=== PATIENT | female | born 1980 | race Caucasian/White ===

== ENCOUNTER 2017-06-16 22:12 | Emergency (ER) | payer MEDICAID ==
[~2017-06-16] VITALS: Ht 175.3 cm; Wt 74.1 kg
[2017-06-17 00:55] LABS: Basophils # (auto) 0 uL; Basophils % (auto) 0.4 % (0.0-2.0); CONDITION Y; Eosinophils # (auto) 0.6 uL; Eosinophils % (auto) 5.3 % (0.0-7.0); Hematocrit 44.7 % (36.0-46.0); Hemoglobin 15.4 g/dL (12.2-16.2); Lymphocytes # (auto) 4.1 uL; Mean Corpuscular Hgb Conc. 34.4 g/dL (32.0-36.0); Mean Platelet Volume 9.4 fL (7.4-10.4); Monocytes # (auto) 0.7 uL; Monocytes % (auto) 5.8 % (0.0-12.0); Neutrophils # (auto) 6.3 uL; Neutrophils % (auto) 53.5 % (37.0-80.0); Platelet Count (auto) 335 10^3/uL (140-450); Red Cell Distribution Width 13.4 % (11.6-16.0); White Blood Cell 11.8 10^3/uL (4.4-10.8)
[2017-06-17 00:57] LABS: INR 0.92 (0.9-1.15); Partial Thromboplastin Time 28.4 sec (22.64-33.71)
[2017-06-17 01:11] LABS: Alkaline Phosphatase 60 U/L (45-117); Anion Gap 7 (5-15); Aspartate Aminotransferase 11 U/L (15-37); BUN/Creatinine Ratio 27.3; Bilirubin, Total 0.3 mg/dL (0.2-1.0); Blood Urea Nitrogen 18 mg/dL (7-18); Calcium 8.4 mg/dL (8.5-10.1); Carbon Dioxide 26 mmol/L (21-32); Chloride 108 mmol/L (98-107); GFR African American 129 mL/min; GFR Non-African American 107 mL/min; Glucose 79 mg/dL (74-106); Magnesium 2.5 mg/dL (1.6-2.6); Potassium 3.7 mmol/L (3.5-5.1); Sodium 141 mmol/L (136-145); Total Protein 7.5 g/dL (6.4-8.2)
[2017-06-17 01:29] LABS: Urine Bilirubin Negative (Negative); Urine Blood Negative /uL (Negative); Urine Color Yellow (Yellow); Urine Glucose Normal (Normal); Urine Ketone Negative (Negative); Urine Mucus FEW (None Seen); Urine Nitrite Negative (Negative); Urine RBC 2 /hpf (0 - 4); Urine Squamous Epithelial Cell FEW /hpf (<5); Urine Urobilinogen Normal (Negative); Urine pH 6.5 (5.0-8.0)
[2017-06-17] MEDS ORDERED: ALBUTEROL SULF 2.5 MG/0.5ML(0.5%) NEB SOLN NEB ONE (07:30)
[2017-06-17] MEDS ORDERED: IPRATROPIUM BROM 0.5 MG/2.5ML INH SOL NEB ONE (07:30)
[2017-06-17 07:38] VITALS: BP 113/77
== END 2017-06-17 08:13 | disposition home or self-care (01) ==
LOC: ER 22:19
DX: R07.9 Chest pain, unspecified (principal); J40 Bronchitis, not specified as acute or chronic; K21.9 Gastro-esophageal reflux disease without esophagitis; F17.210 Nicotine dependence, cigarettes, uncomplicated
CPT/HCPCS: 36415; 71020; 80053; 81001; 81025; 83735; 84443; 84484; 85025; 85610; 85730; 93005; 94640

== ENCOUNTER 2018-01-12 16:30 | Emergency (ER) | payer MEDICAID ==
[~2018-01-12] VITALS: Ht 175.3 cm; Wt 77.1 kg
[2018-01-12 17:06] LABS: Basophils # (auto) 0.1 uL; Basophils % (auto) 0.5 % (0.0-2.0); Eosinophils # (auto) 0 uL; Eosinophils % (auto) 0.2 % (0.0-7.0); Hematocrit 43.8 % (36.0-46.0); Hemoglobin 14.9 g/dL (12.2-16.2); Lymphocytes # (auto) 1.5 uL; Lymphocytes % (auto) 8.8 % (10.0-50.0); Mean Corpuscular Hemoglobin 32.4 pg (28.0-32.0); Mean Corpuscular Volume 95.2 fL (80.0-100.0); Monocytes # (auto) 1.3 uL; Monocytes % (auto) 7.6 % (0.0-12.0); Neutrophils % (auto) 82.9 % (37.0-80.0); Platelet Count (auto) 278 10^3/uL (140-450); Red Cell Distribution Width 13.3 % (11.8-14.3); White Blood Cell 16.8 10^3/uL (4.4-10.8)
[2018-01-12 17:17] LABS: Urine Bacteria FEW /hpf (None Seen); Urine Blood Negative /uL (Negative); Urine Specific Gravity 1.002 (1.001-1.035); Urine WBC 7 /hpf (0 - 5)
[2018-01-12 17:31] LABS: Alanine Aminotransferase 24 U/L (13-56); Albumin 3.6 g/dL (3.4-5.0); Alkaline Phosphatase 77 U/L (45-117); Amylase 49 U/L (25-115); Anion Gap 7 (5-15); Aspartate Aminotransferase 16 U/L (15-37); BUN/Creatinine Ratio 7.1; Bilirubin, Total 0.4 mg/dL (0.2-1.0); Blood Urea Nitrogen 5 mg/dL (7-18); Calcium 8.5 mg/dL (8.5-10.1); Carbon Dioxide 24 mmol/L (21-32); Chloride 104 mmol/L (98-107); GFR African American 120 mL/min; GFR Non-African American 99 mL/min; Glucose 108 mg/dL (74-106); Lipase 102 U/L (73-393); Potassium 3.8 mmol/L (3.5-5.1); Sodium 135 mmol/L (136-145); Total Protein 7.8 g/dL (6.4-8.2)
[2018-01-12 22:39] VITALS: BP 116/67
[2018-01-12 23:45] LABS: Alcohol, Urine < 3.0 mg/dL (0-5); Amphetamine Screen, Urine NEGATIVE (NEGATIVE); Barbiturate Scree,Urine NEGATIVE (NEGATIVE); Benzodiazephine Screen, Urine NEGATIVE (NEGATIVE); Cannabinoid Screen, Urine NEGATIVE (NEGATIVE); Cocaine Screen, Urine NEGATIVE (NEGATIVE); Opiate Scree,Urine NEGATIVE (NEGATIVE); Phencyclidine Screen, Urine NEGATIVE (NEGATIVE)
[2018-01-13] MEDS: SODIUM CHLORIDE 0.9% 1,000 ML IV ONE (00:57)
[2018-01-13] MEDS: cefTRIAXone 1GM/10ml IVPUSH 10 ML IV ONE (00:57)
[2018-01-13] MEDS: metroNIDAZOLE 500 MG TAB PO ONE (00:57)
[2018-01-13] MEDS: MAGNESIUM CITRATE SOLUTION 300 ML BTL PO ONE (00:57)
[2018-01-13] MEDS: ONDANSETRON HCL 4 MG/2 ML VIAL IV ONE (01:12)
[2018-01-13] MEDS: MEPERIDINE HCL (50 MG/ML) 1 ML VIAL IV ONE (01:12)
== END 2018-01-13 03:15 | disposition home or self-care (01) ==
LOC: ER 16:34
DX: N39.0 Urinary tract infection, site not specified (principal); K59.00 Constipation, unspecified; D72.829 Elevated white blood cell count, unspecified
CPT/HCPCS: 36415; 74176; 80053; 80307; 81001; 82150; 83690; 84484; 85025; 96374; 96375; 99285; J2175; J2405

== ENCOUNTER → 2020-03-04 | Emergency (ER) | payer MEDICAID ==
[~2020-03-04] VITALS: Ht 175.3 cm; Wt 94.3 kg
[~2020-03-04] MED LIST: LORazepam 0.5 MG TAB PO ONE
[2020-03-05] LABS: Basophils # (auto) 0.1 10 ^3/uL (0-0.2); Basophils % (auto) 0.8 % (0.0-2.0); Eosinophils # (auto) 0.6 10 ^3/uL (0-0.8); Eosinophils % (auto) 5.2 % (0.0-7.0); Hematocrit 46.4 % (36.0-46.0); Hemoglobin 15.7 g/dL (12.2-16.2); Lymphocytes # (auto) 3.4 10 ^3/uL (0.4-5.4); Lymphocytes % (auto) 29.6 % (10.0-50.0); Mean Corpuscular Hemoglobin 32.1 pg (28.0-32.0); Mean Corpuscular Hgb Conc. 33.9 g/dL (32.0-36.0); Mean Corpuscular Volume 94.6 fL (80.0-100.0); Monocytes # (auto) 0.7 10 ^3/uL (0-1.3); Monocytes % (auto) 6.2 % (0.0-12.0); Neutrophils # (auto) 6.6 10 ^3/uL (1.6-8.6); Neutrophils % (auto) 58.2 % (37.0-80.0); Nucleated Red Blood Cells % 0.1 %; Platelet Count (auto) 291 10^3/uL (140-450); Red Cell Distribution Width 15.3 % (11.8-14.3); White Blood Cell 11.3 10^3/uL (4.4-10.8)
[2020-03-05 00:21] LABS: INR 0.99 (0.9-1.15); Partial Thromboplastin Time 27.6 sec (23.64-32.05)
[2020-03-05 00:24] LABS: Albumin 3.7 g/dL (3.4-5.0); BUN/Creatinine Ratio 22.7; Calcium 8.1 mg/dL (8.5-10.1); Potassium 3.8 mmol/L (3.5-5.1)
[2020-03-05 00:26] LABS: Bilirubin, Total 0.4 mg/dL (0.2-1.0); Total Protein 7.4 g/dL (6.4-8.2)
[2020-03-05 00:43] LABS: Amphetamine Screen, Urine NEGATIVE (NEGATIVE); Barbiturate Scree,Urine NEGATIVE (NEGATIVE); Benzodiazephine Screen, Urine NEGATIVE (NEGATIVE); Cannabinoid Screen, Urine POSITIVE (NEGATIVE); Cocaine Screen, Urine NEGATIVE (NEGATIVE); Opiate Scree,Urine POSITIVE (NEGATIVE); Phencyclidine Screen, Urine NEGATIVE (NEGATIVE)
[2020-03-05 00:54] LABS: Urine Bacteria FEW /hpf (None Seen); Urine Blood Negative /uL (Negative); Urine Mucus FEW (None Seen); Urine Specific Gravity 1.023 (1.001-1.035); Urine WBC 1 /hpf (0 - 5)
[2020-03-05 01:01] LABS: Alcohol, Urine < 3.0 mg/dL (0-10)
[2020-03-05 01:44] VITALS: BP 133/85
== END | disposition home or self-care (01) ==
LOC: ER 23:02
DX: G45.4 Transient global amnesia (principal); R42 Dizziness and giddiness
CPT/HCPCS: 36415; 70450; 80053; 80307; 81001; 81025; 85025; 85610; 85730